=== PATIENT | female | born 2005 | race Caucasian/White ===

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

== ENCOUNTER 2023-11-03 12:55 | Outpatient (CLI) | payer BC, SELFPAY ==
--- NOTE | 2023-11-03 13:03 | US_ITS ---
FINAL REPORT CLINICAL HISTORY: DISORDER OF THYROID FINDINGS: Limited sonographic images of the thyroid were obtained. The thyroid is normal in size. The parenchyma is unremarkable. There is a 4 mm TR 3 nodule in the right lobe of the thyroid. There is a 4 mm TR 4 nodule in the posterior right lobe. There are 2 separate TR 4 nodules in the left lobe measuring 6 and 4 mm. IMPRESSION: Small thyroid nodules, most likely benign based on size. No follow-up is recommended at this time. Reviewed, Interpreted and Dictated by Polly Gongora MD Transcribed by Nga Finley Authenticated and [facility]
== END 2023-11-03 23:59 | disposition home or self-care (01) ==
LOC: RAD 12:55
PROVIDERS: PCP Nurse Practitioner Family; Visit Provider Nurse Practitioner Family
DX: E07.9 Disorder of thyroid, unspecified (principal)
CPT/HCPCS: 76536

== ENCOUNTER 2024-06-18 12:09 | Outpatient (CLI) | payer BC, SELFPAY ==
[2024-06-18 12:50] LABS: Basophils % 0.5 % (0.1-2.0); Eosinophils # 0.1 K/mm3 (0.0-0.4); Eosinophils % 1.2 % (0.1-12.0); Hematocrit 37.6 % (37.0-47.0); Hemoglobin 12.1 g/dL (12.2-16.2); Lymphocytes # 1.5 K/mm3 (0.7-4.5); Lymphocytes % 24.7 % (10-50); Mean Corpuscular HGB Conc 32.2 g/dL (31.8-35.4); Mean Corpuscular Hemoglobin 26.4 pg (27.0-31.2); Mean Corpuscular Volume 82.1 fl (81-99); Mean Platelet Volume 10.6 fl (7.4-10.4); Monocytes # 0.5 K/mm3 (0.1-1.0); Monocytes % 8.3 % (1.7-9.3); Neutrophils # 3.9 K/mm3 (1.8-7.8); Neutrophils % 65.1 % (37.0-80.0); Platelet Count 260 K/mm3 (142-424); Red Blood Count 4.58 M/mm3 (4.20-5.40); Red Cell Distribution Width 13.5 % (11.5-17.5)
[2024-06-18 12:58] LABS: Chloride 104 mmol/L (98-107); Potassium 4.1 mmoL/L (3.5-5.1); Sodium 135 mmol/L (136-145)
[2024-06-18 13:01] LABS: Anion Gap 10.1 mEq/L (5-15); Blood Urea Nitrogen 11 mg/dl (7-17); Calcium 9.3 mg/dl (8.4-10.2); Carbon Dioxide 25 mmol/L (22.0-30.0); Estimated Glomerular Filt Rate 126 ml/min (>60); GFR (African American) 153 ML/MIN (>60); Glucose 99 mg/dl (74-100)
[2024-06-18 13:09] LABS: Urine Pregnancy, HCG Qual. Negative (Negative)
== END 2024-06-18 23:59 | disposition home or self-care (01) ==
LOC: PREOP 12:10
PROVIDERS: PCP Nurse Practitioner Family; Visit Provider Surgery
DX: K64.9 Unspecified hemorrhoids (principal)
CPT/HCPCS: 80048; 81025; 85025

== ENCOUNTER 2024-06-24 06:03 | Day surgery (SDC) | payer BC, SELFPAY ==
[2024-06-18 16:48] VITALS: BMI 38.9
[2024-06-24] VITALS (10 sets, daily range): BP systolic 108–138; BP diastolic 47–86; PULSE 70–91; RESP 16–18; TEMP 36.1–36.6; O2SAT 94–100; BMI 38.9
--- NOTE | 2024-06-24 06:53 | EXP.GEN.HP ---
HPI HPI HPI: This a 19-year-old female seen in consultation from her primary care provider for evaluation regarding external hemorrhoid/perianal tag/cushion. Over the past few months she has noticed intermittent irritation and occasional discomfort. Occasional swelling . [facility] Disclaimer: The information contained in this section may have been updated after the patient was seen, as this information can be updated by other users. Medical History (Updated 06/24/24 @ 06:55 by Valdez Julien MD) No significant past medical history Surgical History History of wisdom tooth extraction History of placement of ear tubes History of appendectomy Family History No significant family history Social History Smoking Status: Never smoker alcohol intake: never current occupational status: student Travel in the last 8 weeks: Inside the [place] Have you lived/traveled outside [place] in past 30 days?: No Contact w/someone who lives/traveled outside US past 30 days?: No Exposure to someone with infectious disease in past 14 days?: No Do you have a fever (greater than 100.4 F or 38 C)?: No Have you tested positive for COVID-19: No Exposed to someone with COVID-19 in past 14 days?: No Do you have a sore throat?: No Do you have a cough?: No Do you have any weakness?: No Do you have any diarrhea?: No Are you experiencing any unusual bleeding?: No Do you have any muscle aches/pain?: No Do you have any abdominal pain?: No Are you experiencing loss of taste or smell?: No Meds Home Medications and Allergies Home Medications ?Medication ?Instructions ?Recorded ?Confirmed ?Type fluoxetine 20 mg capsule 20 mg PO DAILY 05/21/24 06/24/24 History hydrocortisone acetate 25 mg 25 mg [place] DAILY 05/21/24 06/24/24 History rectal suppository (Anucort-HC) New Prescriptions to Start Prescriptions: Allergies Allergy/AdvReac Type Severity Reaction Status Date / Time No Known Allergies Allergy Verified 06/24/24 06:20 Exam Data for Last 24 hours Vital signs and Labs for Last 24 Hours: Temp Pulse Resp BP Pulse Ox O2 Del Method 97.5 F L 87 18 125/85 98 Room Air 06/24/24 06:22 06/24/24 06:22 06/24/24 06:22 06/24/24 06:22 06/24/24 06:22 06/24/24 06:22 I & O for Last 24 hours: Intake & Output 06/21/24 06/22/24 06/23/24 06/24/24 11:59 11:59 11:59 11:59 Weight 220 lb Constitutional Constitutional: no acute distress *Routine HEENT Exam Head: Present normocephalic Eye: Present EOMI ENT: Present mucous membranes moist *Routine Respiratory Exam Respiratory: Absent respiratory distress *Routine Cardiovascular Exam Cardiovascular: Absent tachycardia *Routine Abdominal Exam Abdominal: Present soft *Routine Rectal Exam Rectal:: no bleeding Comments:: Unchanged hemorrhoidal cushion/tag *Routine Genitalia Exam Genitalia:: deferred *Routine Skin Exam Skin: Absent erythema Assessment and Plan *Assessment and plan (1) Unspecified hemorrhoids: Problem Comment: External hemorrhoidal cushion with complement tag. Associated discomfort/pain and occasional swelling . Status: Acute Qualifiers: Hemorrhoid type: other Qualified Code(s): K64.8 - Other hemorrhoids Category: Medical Code(s): K64.9 - Unspecified hemorrhoids Plan: Hemorrhoidectomy (as scheduled) I have discussed the risks and benefits including, but not limited to: Bleeding Infection Damage to surrounding tissue Inherent risks of sedation The patient agrees to proceed.
--- NOTE | 2024-06-24 07:01 | P.PNANES_ITS ---
[facility] Disclaimer: The information contained in this section may have been updated after the patient was seen, as this information can be updated by other users. Medical History (Updated 06/24/24 @ 06:55 by Valdez Julien MD) No significant past medical history Surgical History History of wisdom tooth extraction History of placement of ear tubes History of appendectomy Family History Other No significant family history Social History Smoking Status: Never smoker alcohol intake: never substance use type: denies use current occupational status: student Travel in the last 8 weeks: Inside the [place] [facility] Anesthesia Checklist Patient Identification Patient Identification: Arm Band and Family Structural Data Admitted From: Home Planned Operative Procedure/s: Hemmorhoidectomy Consent for Planned Operative Procedure(s) Verified: Yes Verified Documents: Surgical Consent and History and Physical NPO Status Verified Time NPO: 00:00 Additional verifications Patient : No Anesthesia Reactions: No Hx Blood Transfusions: No Blood Transfusion Reaction: No Cephalosporin Allergy: No Previous Colonoscopy: No Airway Assessment Mallampati Score:: Class I C-Spine Mobility Assessed: Yes TMJ Mobility Assessed: Yes Dentition: Good Dentition Neurological Assessment Level of Consciousness: Awake, Alert, Appropriate and Follows Commands Hx Seizures: No Numbness or tingling in extremities: No Anesthesia Plan Anesthesia Risk discussed: Yes ASA Class: I Anesthesia Type: General
[2024-06-24] MEDS: CEFAZOLIN SODIUM 2 GM in 0.9 % SODIUM CHLORIDE 100 ML IV (07:20)
[2024-06-24] MEDS: METRONIDAZ/SOD CHL 500 MG/100 ML PIGGYBACK 100 MG IV (07:20)
[2024-06-24] MEDS: LIDOCAINE 1% 20ML MDV 20 ML (07:40)
--- NOTE | 2024-06-24 07:56 | P.OP_ITS ---
Date of procedure: 06/24/24 Pre-op Diagnosis:: Internal/external hemorrhoids with associated pain Post-op Diagnosis:: Same Procedure performed:: Examination under anesthesia with hemorrhoidectomy Surgeon:: Valdez Julien MD PRODUCT SUPPORT ANALYST:: Gillian Alvarado Anesthesia: LMA Estimated blood loss (mL): 10 Operative findings:: Right lateral prolapse internal hemorrhoid with partial external marginal component Left lateral/posterior external hemorrhoidal cushion/tag Operative note:: After informed consent was obtained the patient was taken to the operating room and placed in the supine position. General anesthesia was induced and she was transferred to a modified lithotomy position. Inspection and digital rectal exam confirmed a complex left lateral/posterior external hemorrhoidal cushion/tag, as well as, a partially-prolapsed right lateral internal hemorrhoid with partial external marginal component. The right lateral prolapsed internal hemorrhoid was carefully elevated and transected with electrocautery at its stal k. The specimen was passed off for pathologic evaluation. The left lateral/posterior complex external tag was carefully elevated and removed at its base via electrocautery before being passed off for pathologic evaluation. Electrocautery was utilized to achieve hemostasis. Proctosol-coated Gelfoam was placed in the anal canal. The patient's anesthetic agents were reversed and she was transferred to recovery in stable condition after removal of her laryngeal mask airway. Condition: stable Disposition: PACU Specimens:: Right lateral internal prolapsed hemorrhoid (marginal external component) Left lateral/posterior complex hemorrhoidal tag Complications:: No immediate
--- NOTE | 2024-06-24 08:01 | EXP.ANES.I ---
[facility] Anesthesia Record Part I Anesthesia Record I Intake, IV Amount: 600 Hydration: Adequate Estimated blood loss (mL): 10 Urine output (mL): 0 Blood Pressure: 108/47 SaO2: 94 Pulse Rate: 82 Airway Patency: Patent Respiratory Rate: 16 Temperature: 97.0 F Patient is:: Awake, Drowsy and Stable Stable to PACU at:: 08:03
[2024-06-24] MEDS: HYDROCORTISONE 2.5% CREAM 28GM TUBE TP (08:13)
--- NOTE | 2024-06-24 08:59 | EXP.ANES.II ---
[facility] Anesthesia Record Part II Anesthesia Record Part II Discharge Time: 08:28 Destination: Surgical Day Care (OP Surgery) PACU nurse assessment reviewed?: Yes Patient Condition:: Good Anesthesia Complications:: None Swallowing reflex intact?: Yes Airway Patency: Patent Cyanosis?: No Blood Pressure: 121/86 SaO2: 99 Respiratory Rate: 16 Pulse Rate: 80 Temperature: 97.0 F Mental Status: Alert & Oriented Pain level:: 0 Nausea and/or vomitting:: None Intake, IV Amount: 600 Hydration: Adequate
== END 2024-06-24 08:59 | disposition home or self-care (01) ==
PROVIDERS: PCP Nurse Practitioner Family; Visit Provider Surgery
PROC: (CPT 46260; principal; 2024-06-24 07:30)
DX: K64.8 Other hemorrhoids (principal)
CPT/HCPCS: 46260; 96374; J0690; J1100; J1885; J2250; J2405; J3010